=== PATIENT | male | born 1985 | race Caucasian/White ===

== ENCOUNTER 2021-05-16 10:39 | Emergency (ER) | payer BC, SELFPAY ==
[2021-05-16 10:54] VITALS: BP 128/76; PULSE 82; RESP 16; TEMP 36.6; O2SAT 98
--- NOTE | 2021-05-16 12:36 | ED.GENADULT ---
HPI - General Adult General Chief complaint: Upper Respiratory Infection Stated complaint: LUMP IN THROAT History of Present Illness HPI narrative: Patient is a 36-year-old male who presents to the [facility] via POV for evaluation of URI symptoms that have been present for approximately 6 days. Additionally, he reports a lump sensation in his throat, nasal congestion, and sore throat. He also reports spitting up thick, green nasal drainage. DayQuil and NyQuil provide minimal relief. Nothing worsens symptoms. Patient denies known exposure to sick contacts. Of note, patient received influenza and first dose of Covid vaccine the day before symptoms started. He states his daughter was ill with similar signs and symptoms approximately 2 weeks ago. His is also here to be seen with similar symptoms. Related Data Home Medications Medication Instructions Recorded Confirmed cetirizine [Zyrtec] mg 05/16/21 rosuvastatin mg 05/16/21 sertraline mg 05/16/21 Allergies Allergy/AdvReac Type Severity Reaction Status Date / Time Penicillins Allergy Unknown Hives Verified 05/16/21 10:53 Sulfa (Sulfonamide Allergy Unknown Hives Verified 05/16/21 10:53 Antibiotics) Review of Systems Review of Systems: Denies history of COPD, bronchitis, asthma, and pneumonia. Denies current/past tobacco use. Pertinent negatives: fever, sweats, chills, change in appetite, fatigue, skin color changes, headache, nasal discharge, dizziness, lymphadenopathy, sinus pain/pressure, ear pain/drainage, drooling, difficulty swallowing, voice changes, chest pain, heart murmurs, heart palpitations, shortness of breath, wheezing, cyanosis, hemoptysis, hoarseness, orthopnea, pleuritic pain, nausea, vomiting, diarrhea, and myalgias. PMFSH Past Medical History Medical History (Updated 05/16/21 @ 12:46 by Tara Trinidad, [employer], ) Anxiety and depression Hyperlipidemia Comments I have reviewed and agree with the patient's past medical, surgical, social, and family hx as documented by the RN. There is no relevant family history pertinent to the presenting complaint. Exam Narrative: GENERAL: Well-appearing, well-nourished, and in no acute distress. HEAD: Normocephalic, atraumatic. No sinus tenderness or facial swelling appreciated. EYES: PERRLA and EOMI. No evidence of erythema, swelling, or drainage. ENT: Bilateral external ears and ear canals normal. Bilateral TMs are normal.No TM perforation. Nares clear, no rhinorrhea or epistaxis. Bilateral turbinates without erythema/ swelling. Mucous membranes moist and pink. Uvula is midline. Moderate erythema and swelling noted to uvula. Posterior pharynx is without petechial rash, cobblestoning, lesions, ulcers, erythema, swelling, exudates, peritonsillar abscess, tenting, or drooling. Breath odor and voice normal. NECK: Supple. No Lymphadenopathy or nuchal rigidity appreciated. CHEST: Bilateral lung matos are clear to auscultation. No respiratory distress. No evidence of cough or pleuritic cp upon examination. HEART: Regular rate and rhythm. No murmur, gallop, or rub heard. EXTREMITIES: Normal range of motion. No edema. SKIN: Warm, dry, no rash. NEURO: No focal deficits. Alert and oriented x3. Course Vital Signs Vital signs: Vital Signs Temperature 97.9 F 05/16/21 10:54 Pulse Rate 82 05/16/21 10:54 Respiratory Rate 16 05/16/21 10:54 Blood Pressure 128/76 05/16/21 10:54 Pulse Oximetry 98 05/16/21 10:54 Temperature 97.9 F 05/16/21 10:54 Pulse Rate 82 05/16/21 10:54 Respiratory Rate 16 05/16/21 10:54 Blood Pressure 128/76 05/16/21 10:54 Pulse Oximetry 98 05/16/21 10:54 Reviewed Medical Decision Making Differential Diagnosis Differential Diagnosis: Allergic rhinitis, ABRS, acute viral sinusitis, strep pharyngitis, nasopharyngitis, bronchitis, pneumonia, AOM, otitis externa, viral URI, influenza, COVID-19 Medical Records Medical records reviewed: Ian
== END 2021-05-16 11:40 | disposition home or self-care (01) ==
PROVIDERS: Emergency Provider Nurse Practitioner Family; PCP Nurse Practitioner Adult Health
DX: J06.9 Acute upper respiratory infection, unspecified (principal); E78.00 Pure hypercholesterolemia, unspecified
CPT/HCPCS: 99203; G0463

== ENCOUNTER → 2021-05-19 03:04 | Outpatient (CLI) | payer BC, SELFPAY ==
[2021-05-19 17:36] LABS: SARS-CoV-2 RNA PCR Positive
== END ==
PROVIDERS: PCP Nurse Practitioner Adult Health; Visit Provider Nurse Practitioner Adult Health
DX: U07.1 COVID-19 (principal)
CPT/HCPCS: C9803; U0003; U0005

== ENCOUNTER 2021-05-30 11:02 | Emergency (ER) | payer BC, SELFPAY ==
[2021-05-30 11:05] VITALS: BP 134/85; PULSE 84; RESP 16; TEMP 36.4; O2SAT 99
--- NOTE | 2021-05-30 11:16 | ED.EAR ---
HPI - Ear Problem General Chief complaint: Ear Stated complaint: SORE THROAT/EARACHE Time Seen by Provider: 05/30/21 11:17 Source: patient and RN notes reviewed Mode of arrival: ambulatory Limitations: no limitations History of Present Illness HPI Narrative: 36-year-old male presents concern for ongoing right earache, feeling of fluid in the ear, tender swollen lymph node on the right side. Reports these swollen lymph node only hurts when he swallows. Reports recent Covid infection, and the symptoms have persisted since then. Reports he was treated with steroids and antibiotics after his Covid infection and most other symptoms resolved. He denies any decreased hearing, drainage from the ear, tinnitus. Denies fever, cough, body aches, difficulty swallowing. Denies any [id number] intervention, reports he takes Zyrtec on a daily basis. MD Complaint: ear pain Related Data Home Medications Medication Instructions Recorded Confirmed cetirizine [Zyrtec] 10 mg PO DAILY 05/16/21 05/30/21 rosuvastatin 10 mg PO DAILY 05/16/21 05/30/21 sertraline 100 mg PO DAILY 05/16/21 05/30/21 Allergies Allergy/AdvReac Type Severity Reaction Status Date / Time Penicillins Allergy Unknown Hives Verified 05/30/21 11:05 Sulfa (Sulfonamide Allergy Unknown Hives Verified 05/30/21 11:05 Antibiotics) Review of Systems Review of Systems: CONSTITUTIONAL: Denies malaise, chills, sweats, or fever. EYES: Denies visual changes, redness, or discharge. ENT: Denies rhinorrhea, congestion, sinus pain, and sore throat. Reports right ear pain, right swollen lymph node CARDIOVASCULAR: Denies chest pain, palpitations, or edema. RESPIRATORY: Denies cough. Denies dyspnea. GASTROINTESTINAL: Denies abdominal pain, nausea, vomiting, diarrhea SKIN: Denies rash or itching. MUSCULOSKELETAL: Denies myalgia. NEUROLOGIC: Denies headache. All systems reviewed & are unremarkable except as noted in HPI and below PMFSH Past Medical History Medical History (Updated 05/30/21 @ 11:29 by Nalini Choudhury NP) Anxiety and depression Hyperlipidemia Comments At time of signature, agree with nursing past medical, surgical, social and family history. There is no relevant family history pertinent to the presenting complaint Exam Narrative: GENERAL: Well-appearing, well-nourished, and in no acute distress. HEAD: Normocephalic EYES: PERRLA, conjunctivae clear ENT: Nares clear. Mucous membranes moist. TM pearly gonzalez with sharp light reflex bilaterally; no tragal tenderness. Oropharynx not erythematous without lesions. Tonsils not enlarged and without exudate, no drooling, no hoarseness, no trismus, uvula midline. No posterior tonsillar swelling noted NECK: Supple. No palpable lymphadenopathy CHEST: Clear to auscultation, breath sounds equal. No wheezing, rhonchi, rales, or stridor. No respiratory distress, speaks in full sentences. HEART: Regular rate and rhythm. No murmur heard. SKIN: Warm, dry, no rash. NEURO: Alert and oriented x3. PSYCH: Normal mood and affect Course Course Emergency Course: Patient is aware of diagnosis, understands and agrees to treatment plan. Anticipatory guidance given. Patient agrees to follow-up as directed and is aware of reasons to seek care at the emergency department. Portions of this record may have been created with voice recognition software Vital Signs Vital signs: Vital Signs Temperature 97.5 F L 05/30/21 11:05 Pulse Rate 84 05/30/21 11:05 Respiratory Rate 16 05/30/21 11:05 Blood Pressure 134/85 05/30/21 11:05 Pulse Oximetry 99 05/30/21 11:05 Temperature 97.5 F L 05/30/21 11:05 Pulse Rate 84 05/30/21 11:05 Respiratory Rate 16 05/30/21 11:05 Blood Pressure 134/85 05/30/21 11:05 Pulse Oximetry 99 05/30/21 11:05 Reviewed. Medical Decision Making MDM Narrative Medical decision making narrative: Differential diagnosis considered: [place] virus, strep pharyngitis, allergic rhinitis, upper respir
== END 2021-05-30 11:37 | disposition home or self-care (01) ==
PROVIDERS: Emergency Provider Nurse Practitioner; PCP Nurse Practitioner Adult Health
DX: H92.01 Otalgia, right ear (principal); E78.5 Hyperlipidemia, unspecified; F41.9 Anxiety disorder, unspecified; F32.A Depression, unspecified; Z86.16 Personal history of COVID-19
CPT/HCPCS: 99213; G0463

== ENCOUNTER 2021-07-03 12:58 | Emergency (ER) | payer BC, SELFPAY ==
[2021-07-03 13:09] VITALS: BP 128/77; PULSE 80; RESP 16; TEMP 36.4; O2SAT 99
--- NOTE | 2021-07-03 13:26 | ED.BACK ---
HPI - Back Pain/Injury General Chief Complaint: Back Pain/Injury Stated Complaint: lower back pain Time Seen by Provider: 07/03/21 13:17 Source: patient and RN notes reviewed Mode of arrival: ambulatory Limitations: no limitations History of Present Illness HPI Narrative: Patient presents today complaining of a 1 week history of stiffness and midline low back pain that has been worsening since onset. Denies injury or trauma. Denies radiation of pain, numbness or tingling in the extremities or genitals. Denies any loss of bowel or bladder control. Pain increases when he lies down or after he has been sitting for a period of time. He has tried ice and heat for short period of time this morning without relief. He has also tried Tylenol and ibuprofen without relief. Related Data Home Medications Medication Instructions Recorded Confirmed cetirizine [Zyrtec] 10 mg PO DAILY 05/16/21 05/30/21 rosuvastatin 10 mg PO DAILY 05/16/21 05/30/21 sertraline 100 mg PO DAILY 05/16/21 05/30/21 Allergies Allergy/AdvReac Type Severity Reaction Status Date / Time Penicillins Allergy Unknown Hives Verified 05/30/21 11:05 Sulfa (Sulfonamide Allergy Unknown Hives Verified 05/30/21 11:05 Antibiotics) Review of Systems Review of Systems: CONSTITUTIONAL: Denies body aches, fever, chills, or sweats. EYES: Denies visual changes, redness, or discharge. ENT: Denies rhinorrhea, congestion, sore throat, or otalgia. CARDIOVASCULAR: Denies chest pain, palpitations, or edema. RESPIRATORY: Denies cough or dyspnea. GASTROINTESTINAL: Denies abdominal pain, nausea, vomiting, or diarrhea. GENITOURINARY: Denies dysuria or hematuria. SKIN: Denies rash, itching, or wounds. MUSCULOSKELETAL: Denies joint pain, or myalgia.+ Low back pain NEUROLOGIC: Denies headache, numbness, tingling, or weakness. PSYCH: Denies depression or anxiety. [facility] Past Medical History Medical History Anxiety and depression Hyperlipidemia Comments At time of signature, I have reviewed and agree with nursing past medical, surgical, social and family history unless otherwise noted. Please see nursing chart for further information. There is no relevant family history pertinent to the presenting complaint Exam Narrative: GENERAL: Well-appearing, well-nourished, and in no acute distress. HEAD: Normocephalic, atraumatic. EYES: EOMI. No redness or drainage. Conjunctivae normal. ENT: Mucous membranes pink and moist. NECK: Normal AROM. CHEST: No respiratory distress. MUSCULOSKELETAL: No bony tenderness of the spine. Patient localizes his pain to the lower lumbar area, but pain is not reproduced with palpation. Distal sensation intact. Saddle sensation intact. Capillary refill normal. Strength in the lower extremities is normal. EXTREMITIES: Normal range of motion. No edema. SKIN: Warm, dry, no rash. Capillary refill normal. Normal skin turgor. NEURO: No focal deficits. Alert and oriented x3. Gait steady. PSYCH: Normal affect. No signs of depression or anxiety. Course Vital Signs Vital signs: Vital Signs Temperature 97.6 F 07/03/21 13:09 Pulse Rate 80 07/03/21 13:09 Respiratory Rate 16 07/03/21 13:09 Blood Pressure 128/77 07/03/21 13:09 Pulse Oximetry 99 07/03/21 13:09 Temperature 97.6 F 07/03/21 13:09 Pulse Rate 80 07/03/21 13:09 Respiratory Rate 16 07/03/21 13:09 Blood Pressure 128/77 07/03/21 13:09 Pulse Oximetry 99 07/03/21 13:09 Reviewed. Pt has been instructed to follow up with his PCP regarding his elevated blood pressure today. MDM - Back Pain/Injury Differential Diagnosis Differential diagnosis: Likely lumbar radiculopathy, sciatica and strain of lumbar region Critical Care Time Critical Care Time Critical Care Time: No Discharge Plan Discharge Clinical Impression: Low back strain Qualifiers: Encounter type: initial encounter Qualified Code
== END 2021-07-03 13:33 | disposition home or self-care (01) ==
PROVIDERS: Emergency Provider Nurse Practitioner; PCP Nurse Practitioner Adult Health
DX: S39.012A Strain of muscle, fascia and tendon of lower back, initial encounter (principal); E78.5 Hyperlipidemia, unspecified; X58.XXXA Exposure to other specified factors, initial encounter
CPT/HCPCS: 99213; G0463

== ENCOUNTER → 2021-08-06 07:36 | Outpatient (CLI) | payer BC, SELFPAY ==
[2021-08-07 18:17] LABS: SARS-CoV-2 RNA PCR Positive
== END ==
PROVIDERS: PCP Nurse Practitioner Adult Health; Visit Provider Nurse Practitioner Adult Health
DX: U07.1 COVID-19 (principal)
CPT/HCPCS: C9803; U0003; U0005

== ENCOUNTER 2024-04-27 16:42 | Emergency (ER) | payer BC, SELFPAY ==
[2024-04-27 16:59] VITALS: BP 107/74; PULSE 122; RESP 16; TEMP 37.6; O2SAT 98
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
[2024-04-27 17:48] LABS: EDSTREPNEGPOS1 Negative (Negative)
== END 2024-04-27 17:48 | disposition home or self-care (01) ==
PROVIDERS: Emergency Provider Nurse Practitioner Family; PCP Family Medicine
DX: J06.9 Acute upper respiratory infection, unspecified (principal); E78.5 Hyperlipidemia, unspecified
CPT/HCPCS: 87081; 87880; 99213; G0463